=== PATIENT | male | born 1995 | race Caucasian/White ===

== ENCOUNTER 2020-02-05 13:12 | Emergency (ER) | payer OTHER, SELFPAY ==
[2020-02-05 13:27] VITALS: BP 116/68; PULSE 80; RESP 16; TEMP 36.8; O2SAT 98
--- NOTE | 2020-02-05 13:40 | ED.SKABFB ---
HPI - Skin/Abscess/Foreign Bdy General Chief complaint: Skin/Abscess/Foreign Body Stated complaint: pos boil on left ring finger History of Present Illness HPI narrative: This is a 24-year-old male comes in with a boil to his left middle finger states he does not know what to do. Patient states that it happened when he got his finger caught in something at work. Patient states he continues to get worse the past 2 days he cannot take the pain Related Data Allergies Allergy/AdvReac Type Severity Reaction Status Date / Time Penicillins Allergy Unknown Verified 02/05/20 13:29 Review of Systems Review of Systems: Narrative: CONSTITUTIONAL: Denies fever, chills, or sweats. EYES: Denies visual changes, redness, or discharge. ENT: Denies rhinorrhea, congestion, sore throat, or otalgia. CARDIOVASCULAR:Denies chest pain, palpitations, or edema. RESPIRATORY: Denies cough or dyspnea. GASTROINTESTINAL: Denies abdominal pain, nausea, vomiting, or diarrhea. GENITOURINARY: Denies dysuria or hematuria. SKIN:[Denies rash or itching. Swelling to the lateral side of the middle finger right next to the fingernail MUSCULOSKELETAL:Denies back pain, joint pain, or myalgia. NEUROLOGIC: Denies headache, numbness, or weakness. PSYCHIATRIC:Denies anxiety or depression PMFSH Social History Social History Gender identity (if verbalized by the patient): Male Comments At time as signature, I have reviewed and agree with nursing past medical, social, surgical and family history. Please see nursing chart for further information. There is no relevant family history pertinent to the presenting complaint. Exam Narrative: Exam Narrative: GENERAL:Well-appearing, well-nourished, and in no acute distress. HEAD:Normocephalic, atraumatic. EYES: PERRLA and EOMI. ENT: Nares clear, no rhinorrhea or epistaxis. Mucous membranes moist. NECK: Supple. CHEST: Clear to auscultation. No respiratory distress. HEART: Regular rate and rhythm. No murmur heard. Normal peripheral pulses. ABDOMEN: Soft, nontender, nondistended, normal active bowel sounds. EXTREMITIES: Normal range of motion. No edema. Lateral side of the middle finger swelling on the fingernail with the blueness but palpable fluid and bruising SKIN: Warm, dry, no rash. NEURO: No focal deficits. Alert and oriented x3. Course Vital Signs Vital signs: Vital Signs Temperature 98.2 F 02/05/20 13:27 Pulse Rate 80 02/05/20 13:27 Respiratory Rate 16 02/05/20 13:27 Blood Pressure 116/68 02/05/20 13:27 Pulse Oximetry 98 02/05/20 13:27 Temperature 98.2 F 02/05/20 13:27 Pulse Rate 80 02/05/20 13:27 Respiratory Rate 16 02/05/20 13:27 Blood Pressure 116/68 02/05/20 13:27 Pulse Oximetry 98 02/05/20 13:27 Procedures Abscess I/D hand: Date of Incision: 02/05/20 Time of Incision: 13:30 Side (if applicable): left Local Anesthetic: none Technique: needle aspiration Irrigation: No Packing used?: none I&D Results: Blood Abcess I&D Additional Comments: Patient tolerated well skin still intact fluid drained Band-Aid placed Discharge Plan Discharge Clinical Impression: Paronychia Patient Disposition: Home, Self-Care Condition: Stable Instructions: Antibiotic Form, Paronychia (ED) Additional Instructions: Antibiotics: This medicine is given to help treat or prevent an infection caused by bacteria. Antifungal medicine: This medicine helps kill fungus that may be causing your infection. NSAIDs: Nonsteroidal anti-inflammatory (NSAID) medicine may decrease swelling and pain or fever. This medicine can be bought with or without a doctor's order. This medicine can cause stomach bleeding or kidney problems in certain people. Always read the medicine label and follow the directions on it before using this medicine. Pain medicine: You may need medicine to take away or decrease pain. Learn how to take your medicine. Ask
== END 2020-02-05 14:05 | disposition home or self-care (01) ==
PROVIDERS: Emergency Provider Nurse Practitioner Family
DX: L03.012 Cellulitis of left finger (principal); J45.909 Unspecified asthma, uncomplicated
CPT/HCPCS: 10160; 99203; G0463